=== PATIENT | male | born 1980 | race Caucasian/White ===

== ENCOUNTER 2016-07-13 14:15 | Emergency (ER) | payer OTHER ==
[~2016-07-13] VITALS: Ht 190.5 cm; Wt 93.4 kg
--- NOTE | 2016-07-13 14:35 | ED GI/GU/ABDOMINAL COMPLAINT ---
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 ALSO REPORTING ONE EPISODE OF L SIDED BACK PAIN APPROX 1 HOUR AGO THAT HAS SINCE RESOLVED. Triage Nurses Notes Reviewed? yes HPI: Patient is a 36-year-old male presents complaining of 2 episodes of hematuria this afternoon. Patient had mild left mid back pain at the time which has since resolved. Pain is currently 0 out of 10. Patient has not taken any medication for his symptoms. There were no exacerbating or alleviating factors on the pain was present. Patient was lifting a 6 gallon Posto7 jug, but does not recall any specific injury. Patient denies frequency, urgency, dysuria, nausea, vomiting, fevers, chills, recent trauma. Past History Travel History Traveled to [place] past 21 day No Medical History Any Pertinent Medical History? 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 No Review of Systems Review of Systems Constitutional: Denies: chills, fever. EENTM: Reports: no symptoms. Respiratory: Denies: cough, short of breath. Cardiovascular: Denies: chest pain. GI: Denies: abdominal pain, nausea, vomiting. Genitourinary: Reports: see HPI. Musculoskeletal: Reports: back pain (resolved). Skin: Reports: rash (on prednisone for hives). Neurological/Psychological: Reports: no symptoms. Hematologic/Endocrine: Reports: no symptoms. Immunologic/Allergic: Reports: no symptoms. Physical Exam Physical Exam General Appearance: well developed/nourished, alert, awake Head: atraumatic, normal appearance Eyes: Bilateral: normal appearance, PERRL, EOMI. Ears, Nose, Throat, Mouth: hearing grossly normal, moist mucous membrane Neck: normal inspection, supple, full range of motion Respiratory: normal breath sounds, chest non-tender, no respiratory distress, lungs clear Cardiovascular: regular rate/rhythm Gastrointestinal: normal bowel sounds, soft, mild left mid abdominal tenderness. Back: normal inspection, normal range of motion, no vertebral tenderness, no CVA tenderness Extremities: normal range of motion Neurologic/Psych: no motor/sensory deficits, awake, alert, oriented x 3, normal gait, normal mood/affect Skin: intact, normal color, warm/dry Core Measures ACS in differential dx? No Severe Sepsis Present: No Septic Shock Present: No Progress Differential Diagnosis: prostatitis, ureterolithiasis, urethritis, UTI/pyelo, rhabdomyolysis Plan of Care: Orders Procedure Date/time Status CULTURE,URINE 07/13 1545 Active URINALYSIS 07/13 1432 Complete COMPREHENSIVE METABOLIC PANEL 07/13 1432 Complete CBC WITHOUT DIFFERENTIAL 07/13 1432 Complete Laboratory Tests 07/13/16 1443: Anion Gap 12, Estimated GFR > 60, BUN/Creatinine Ratio 18.8, Glucose 111 H, Calcium 9.6, Total Bilirubin 0.5, AST 23, ALT 54, Alkaline Phosphatase 89, Total Protein 7.2, Albumin 4.6, Globulin 2.6, Albumin/Globulin Ratio 1.8, CBC w Diff NO MAN DIFF REQ, RBC 5.12, MCV 89.9, MCH 30.0, RDW 12.1, MPV 7.9, Gran % 81.3 H , Lymphocytes % 13.2 L, Monocytes % 5.1, Eosinophils % 0.2, Basophils % 0.2, Absolute Granulocytes 11.1 H, Absolute Lymphocytes 1.8, Absolute Monocytes 0.7 H, Absolute Eosinophils 0, Absolute Basophils 0, PUBS MCHC 33.3 07/13/16 1436: Urine Color BLDY H, Urine Clarity CLDY H, Urine pH 7.0, Ur Specific Dale 1.020, Urine Protein >=300 H, Urine Ketones 15 H, Urine Nitrite POS H, Urine Bilirubin NEG, Urine Urobilinogen 2.0 H, Ur Leukocyte Esterase MOD H, Ur Microscopic SEDIMENT EXAMINED, Urine RBC PACKD H, Urine WBC 1-3 H, Ur Epithelial Cells RARE, Urine Bacteria FEW H, Micro UA Comment , Urine Hemoglobin LARGE H, Urine Glucose NEG Microbiology 07/13 1545 URINE ROUT: Urine Culture - RECD 07/13/2016 4:32:32 PM: Results of urinalysis, labs, CT scan discussed with patient. Patient afebrile, nontoxic-appearing, urinating without difficulty. Patient appears stable for discharge. Patient instructed to contact urology for follow-up. Will start patient on antibiotics for possibility of urinary tract infection causing patient's hematuria (JIM LAYTON,TROY) Diagnostic Imaging: Viewed by Me: CT Scan. Discussed w/RAD: CT Scan. Radiology Impression: PATIENT: GRAY ELAINE PRESENT AGE: 36 PATIENT ACCOUNT NO: [id number] : 78 LOCATION: [facility] ORDERING PHYSICIAN: TROY LAYTON SERVICE DATE: 07/13/16 EXAM TYPE: CAT - CT ABD & PELVIS W/O IV CONTRAS EXAMINATION: CT ABDOMEN AND PELVIS WITHOUT CONTRAST CLINICAL INFORMATION: Hematuria. Left back pain. Flank pain. COMPARISON : None TECHNIQUE: Multidetector volumetric imaging was performed from the superior aspect of the liver through the pubic symphysis. Sagittal and coronal reformatted images were obtained on the technologist's workstation. DLP: 322.35 mGy-cm FINDINGS: LUNG BASES: The visualized lung bases are unremarkable. LIVER, GALLBLADDER, AND BILIARY TREE: The liver is normal in size, shape, and attenuation. No focal hepatic lesion or biliary ductal dilatation is present. The gallbladder is unremarkable with no evidence of radiopaque gallstones, gallbladder wall thickening, or obvious pericholecystic inflammatory changes. PANCREAS: Unremarkable. SPLEEN: Unremarkable. ADRENAL GLANDS: Unremarkable. KIDNEYS AND URETERS: The kidneys are normal in size, shape, and attenuation. No hydronephrosis, hydroureter, or calculi seen. No perinephric stranding. BLADDER: There is some hyperdense material layering dependently in the bladder. No bladder calculus or defined mass. GASTROINTESTINAL TRACT: The small and large bowel are unremarkable. Moderate volume of stool in colon. The appendix is unremarkable. ABDOMINAL WALL: No significant hernia is appreciated. LYMPH NODES: Normal. VASCULAR: Unremarkable. PELVIC VISCERA: Prostate and seminal vesicles are unremarkable. OSSEOUS STRUCTURES: Sclerotic bone island measuring 1.5 cm in the left femur at the intertrochanteric line. There is an additional small bone island in the subchondral bone of the left femoral head measuring 5 mm. There are a few tiny sclerotic foci bone island in the right femoral head. There are also a few sclerotic bone islands in the pelvis. IMPRESSION: Small volume of hyperdense material seen layering dependently in the bladder. Given history of hematuria this could be blood products. No bladder calculus or mass. The kidneys and ureters are normal. DICTATED BY: NARCISO WOMACK MD DATE/TIME DICTATED:07/13/161556 TRADER:[id number] DATE/TIME TRANSCRIBED:07/13/161556 CONFIDENTIAL, DO NOT COPY WITHOUT APPROPRIATE AUTHORIZATION. <Electronically signed in Other Vendor System> SIGNED BY: NARCISO WOMACK MD 07/13/16 1623 Initial ED EKG: none Departure Departure Time of Disposition: 1632 Disposition: HOME OR SELF CARE Condition: Stable Clinical Impression Primary Impression: Hematuria Referrals: HARJINDER LITTLE MD Additional Instructions: Drink plenty of fluids. Follow-up with Dr. Little(urologist) for further evaluation. Call this afternoon or in the morning for appointment. Return to the emergency department if difficulty urinating, fevers, increasing pain, or worsening of symptoms. Departure Forms: Customer Survey General Discharge Information Prescriptions: Current Visit Scripts Ciprofloxacin HCl (Cipro) 1 TAB PO BID #20 TAB
[2016-07-13 14:54] LABS: ABSOLUTE BASOPHIL COUNT 0 /CUMM (0.0-0.2); ABSOLUTE EOSINOPHIL COUNT 0 /CUMM (0.0-0.7); ABSOLUTE GRANULOCYTE CT 11.1 /CUMM (1.4-6.5); ABSOLUTE LYMPH COUNT 1.8 /CUMM (1.2-3.4); ABSOLUTE MONOCYTE COUNT 0.7 /CUMM (0.10-0.60); BASOPHIL % 0.2 % (0.0-2.0); EOSINOPHIL % 0.2 % (0-5); GRANULOCYTE % 81.3 % (42.2-75.2); MEAN CORPUSCULAR HGB CONC 33.3 G/DL (33.0-37.0); MEAN CORPUSCULAR VOLUME 89.9 FL (80.0-94.0); MEAN PLATELET VOLUME 7.9 FL (7.4-10.4); PLATELET COUNT 315 /CUMM (130-400); RBC DISTRIBUTION WIDTH 12.1 % (11.5-14.5); RED BLOOD CELL CT 5.12 /CUMM (4.70-6.10); WHITE BLOOD CELL COUNT 13.7 /CUMM (4.8-10.8)
[2016-07-13 16:10] VITALS: BP 153/98
--- NOTE | 2016-07-13 16:23 | CT SCAN REPORT ---
EXAMINATION: CT ABDOMEN AND PELVIS WITHOUT CONTRAST CLINICAL INFORMATION: Hematuria. Left back pain. Flank pain. COMPARISON: None TECHNIQUE: Multidetector volumetric imaging was performed from the superior aspect of the liver through the pubic symphysis. Sagittal and coronal reformatted images were obtained on the technologist's workstation. DLP: 322.35 mGy-cm FINDINGS: LUNG BASES: The visualized lung bases are unremarkable. LIVER, GALLBLADDER, AND BILIARY TREE: The liver is normal in size, shape, and attenuation. No focal hepatic lesion or biliary ductal dilatation is present. The gallbladder is unremarkable with no evidence of radiopaque gallstones, gallbladder wall thickening, or obvious pericholecystic inflammatory changes. PANCREAS: Unremarkable. SPLEEN: Unremarkable. ADRENAL GLANDS: Unremarkable. KIDNEYS AND URETERS: The kidneys are normal in size, shape, and attenuation. No hydronephrosis, hydroureter, or calculi seen. No perinephric stranding. BLADDER: There is some hyperdense material layering dependently in the bladder. No bladder calculus or defined mass. GASTROINTESTINAL TRACT: The small and large bowel are unremarkable. Moderate volume of stool in colon. The appendix is unremarkable. ABDOMINAL WALL: No significant hernia is appreciated. LYMPH NODES: Normal. VASCULAR: Unremarkable. PELVIC VISCERA: Prostate and seminal vesicles are unremarkable. OSSEOUS STRUCTURES: Sclerotic bone island measuring 1.5 cm in the left femur at the intertrochanteric line. There is an additional small bone island in the subchondral bone of the left femoral head measuring 5 mm. There are a few tiny sclerotic foci bone island in the right femoral head. There are also a few sclerotic bone islands in the pelvis. IMPRESSION: Small volume of hyperdense material seen layering dependently in the bladder. Given history of hematuria this could be blood products. No bladder calculus or mass. The kidneys and ureters are normal.
[2016-07-13] MEDS ORDERED: CIPRO500 M1 PO (16:31)
== END 2016-07-13 16:38 ==
LOC: ERH 14:15
PROVIDERS: Physician Assistant
DX: R31.9 Hematuria, unspecified (principal)
CPT/HCPCS: 74176; 81001; 87086